=== PATIENT | male | born 1990 | race African-American/Black ===

== ENCOUNTER 2018-04-26 09:02 | Emergency (ER) | payer MEDICAID ==
[~2018-04-26] VITALS: Ht 165.1 cm; Wt 81.6 kg
[~2018-04-26 09:02] MED LIST: TENORMIN25 MG ORAL
[2018-04-26] MEDS ORDERED: ATORVASTATIN CA40 MG ORAL (09:21)
[2018-04-26] MEDS ORDERED: FAMOTIDINE20 MG ORAL (09:21)
[2018-04-26] MEDS ORDERED: ASPIR 8181 MG ORAL (09:21)
[2018-04-26 09:35] VITALS: BP 144/88
--- NOTE | 2018-04-26 09:42 | Emergency Room Report ---
History of Present Illness General Chief Complaint: Headache Source: Patient Present Illness HPI Patient presents with one week of headache. Also is complaining about chest pain. He feels chest pressure substernally. He feels heaviness in his head. It's mainly located behind his nose and eyes. He rates it as 6/10. He tried taking Tylenol and Aleve without any help. He feels slight nausea without vomiting. The pain is constant through the day, starts soon after waking. Able to sleep. No nasal congestion or sore throat. The patient was recently discharged from 3 different hospitals ultimately he was at [facility]. He had an MRI done that showed old lacunar infarct there was also present on CT scan. This was in the left caudate nucleus. They did echocardiogram that was normal but apparently there were no studies done of his carotids according to him. They didn't discharge him with any medication. In addition to that his hemoglobin A1c was 6.2 and his red cell indices showed microcytosis and low MCV. The patient denies vomiting, fever although he feels chilled on occasion. He's feeling anxious about the recent diagnoses and not having work. Patient denies smoking, alcohol. It's been 3 months since she last used marijuana. No abdominal pain, dysuria, rashes. Allergies: Coded Allergies: No Known Allergies (Unverified , 12/23/14) Patient History Past Medical History: see triage record Social History: Reports: drug use - None for 3 months; Denies: smoking, alcohol use Social History Narrative unemployed cook Reviewed Nursing Documentation: PMH: Agreed; PSxH: Agreed Nursing Documentation-PM Past Medical History: No History, Except For Hx Neurological Problems: Yes - TIA Review of Systems All Other Systems: negative except mentioned in HPI Physical Exam Vital Signs Date Time Temp Pulse Resp B/P (MAP) Pulse Ox O2 Delivery O2 Flow Rate FiO2 04/26/18 09:10 97.5 68 14 144/88 99 Room Air 97.5 Sp02 EP Interpretation: reviewed, normal General Appearance: well appearing, no apparent distress, GCS 15 Head: normocephalic Eyes: bilateral eye normal inspection ENT: moist mucus membranes, other - no sinus tenderness Neck: supple Respiratory: chest non-tender, lungs clear, normal breath sounds Cardiovascular #1: regular rate, rhythm Cardiovascular #2: 2+ radial (R) Gastrointestinal: normal inspection, normal bowel sounds, non tender, no mass, non-distended Musculoskeletal: back normal, gait/station normal, normal range of motion Neurologic: alert, oriented x3, can pusher III-XII nml as tested, motor strength/tone normal, DTRs symmetric, sensory intact, cerebellar normal, normal gait, speech normal Psychiatric: mood/affect normal - states stressed Skin: normal inspection, warm/dry Medical Decision Making Diagnostic Impression: Primary Impression: Headache Qualified Codes: R51 - Headache Additional Impressions: Chest pain Qualified Codes: R07.9 - Chest pain, unspecified s/p lacunar infacrt Anxiety ER Course Patient presents with headache and chest pain with history of old lacunar infarct. Differential includes sinusitis, tension headache, migraine, stress amongst others. Based on his neurologic exam there is no focal processes going on and CT is not indicated at this time as reviewed recent CT and MRI. However EKG chest x-ray and labs are indicated. The patient will be treated with Toradol, Reglan and Benadryl. Chest pain is atypical and he has no cardiac risk factors. EKG without injury. CXR no infiltrates. Labs with normal WBC, CMP, ESR, TSH. Improved with treatment. Discussed with PMD. Discussed treatment plan with patient . Advised patient not to take ativan at same time as tramadol. Patient stable for outpatient observation and treatment. Laboratory Tests Test 04/26/18 09:40 04/26/18 10:00 White Blood Count 5.6 K/UL (4.8-10.8) Red Blood Count 5.53 M/UL (4.70-6.10) Hemoglobin 14.4 G/DL (14.2-18.0) Hematocrit 45.6 % (42.0-52.0) Mean Corpuscular Volume 82 FL (80-99) Mean Corpuscular Hemoglobin 26.0 PG (27.0-31.0) L Mean Corpuscular Hemoglobin Concent 31.6 G/DL (32.0-36.0) L Red Cell Distribution Width 12.3 % (11.6-14.8) Platelet Count 235 K/UL (150-450) Mean Platelet Volume 8.6 FL (6.5-10.1) Neutrophils (%) (Auto) 47.6 % (45.0-75.0) Lymphocytes (%) (Auto) 40.8 % (20.0-45.0) Monocytes (%) (Auto) 7.6 % (1.0-10.0) Eosinophils (%) (Auto) 1.9 % (0.0-3.0) Basophils (%) (Auto) 2.1 % (0.0-2.0) H Erythrocyte Sedimentation Rate 4 MM/HR (0-15) Prothrombin Time 10.7 SEC (9.30-11.50) Prothrombin Time INR 1.0 (0.9-1.1) PTT 29 SEC (23-33) Sodium Level 139 MMOL/L (136-145) Potassium Level 3.6 MMOL/L (3.5-5.1) Chloride Level 105 MMOL/L (98-107) Carbon Dioxide Level 27 MMOL/L (21-32) Anion Gap 7 mmol/L (5-15) Blood Urea Nitrogen 7 mg/dL (7-18) Creatinine 1.0 MG/DL (0.55-1.30) Estimate Glomerular Filtration Rate > 60 mL/min (>60) Glucose Level 105 MG/DL (74-106) Calcium Level 9.5 MG/DL (8.5-10.1) Total Bilirubin 0.4 MG/DL (0.2-1.0) Aspartate Amino Transferase (AST) 28 U/L (15-37) Alanine Aminotransferase (ALT) 67 U/L (12-78) Alkaline Phosphatase 100 U/L (46-116) Total Creatine Kinase 95 U/L (26-308) Troponin I 0.000 ng/mL (0.000-0.056) Pro-B-Type Natriuretic Peptide 25 pg/mL (0-125) Total Protein 8.1 G/DL (6.4-8.2) Albumin 4.4 G/DL (3.4-5.0) Globulin 3.7 g/dL Albumin/Globulin Ratio 1.2 (1.0-2.7) Thyroid Stimulating Hormone (TSH) 1.974 uiU/mL (0.358-3.740) Urine Color Pale yellow Urine Appearance Clear Urine pH 7 (4.5-8.0) Urine Specific [place] 1.005 (1.005-1.035) Urine Protein Negative (NEGATIVE) Urine Glucose (UA) Negative (NEGATIVE) Urine Ketones Negative (NEGATIVE) Urine Blood Negative (NEGATIVE) Urine Nitrite Negative (NEGATIVE) Urine Bilirubin Negative (NEGATIVE) Urine Urobilinogen Normal MG/DL (0.0-1.0) Urine Leukocyte Esterase Negative (NEGATIVE) EKG Diagnostic Results Rate: normal Rhythm: NSR ST Segments: no acute changes Rhythm Strip Diag. Results EP Interpretation: yes Rhythm: NSR, no PVC's, no ectopy Chest X-Ray Diagnostic Results Chest X-Ray Diagnostic Results : Chest X-Ray Ordered: Yes # of Views/Limited/Complete: 1 View Indication: Chest Pain Interpretation: no consolidation, no effusion, no pneumothorax Impression: No acute disease Electronically Signed by: Mike Galvan MD Last Vital Signs Date Time Temp Pulse Resp B/P (MAP) Pulse Ox O2 Delivery O2 Flow Rate FiO2 04/26/18 13:55 97.5 62 21 128/79 100 Room Air 97.5 Status: improved Scripts Ibuprofen* (MOTRIN*) 600 Mg Tablet 600 MG ORAL Q6H PRN for For Pain, #20 TAB Prov: Mike Galvan M.D. 04/26/18 Lorazepam* (ATIVAN*) 0.5 Mg Tablet 0.5 MG ORAL THREE TIMES A DAY, #6 TAB Prov: Mike Galvan M.D. 04/26/18 Tramadol Hcl* (ULTRAM*) 50 Mg Tablet 50 MG ORAL Q6H PRN for For Pain, #8 TAB 0 Refills Prov: Mike Galvan M.D. 04/26/18 Ondansetron Odt* (ZOFRAN ODT*) 4 Mg Tab.rapdis 4 MG BC EVERY 8 HOURS PRN for Nausea & Vomiting, #6 TAB 1 Refill Prov: Mike Galvan M.D. 04/26/18 Referrals: Heidi Das MD (PCP) Mike Galvan M.D. Apr 26, 2018 09:42
[2018-04-26] MEDS ORDERED: Ketorolac 30mg Inj IV ONE (09:45)
[2018-04-26] MEDS ORDERED: Metoclopramide 10mg/2ml Inj IVP ONE (09:45)
[2018-04-26] MEDS ORDERED: DiphenhydrAMINE 50mg/ml Inj IVP ONE (09:45)
[2018-04-26 10:03] LABS: BASOPHILS % (AUTO) 2.1 % (0.0-2.0); EOSINOPHILS % (AUTO) 1.9 % (0.0-3.0); HEMATOCRIT 45.6 % (42.0-52.0); HEMOGLOBIN 14.4 G/DL (14.2-18.0); LYMPHOCYTES % (AUTO) 40.8 % (20.0-45.0); MEAN CORPUSCULAR VOLUME 82 FL (80-99); MONOCYTES % (AUTO) 7.6 % (1.0-10.0); NEUTROPHILS % (AUTO) 47.6 % (45.0-75.0); PLATELET COUNT 235 K/UL (150-450); RED BLOOD COUNT 5.53 M/UL (4.70-6.10); RED CELL DISTRIBUTION WIDTH 12.3 % (11.6-14.8); WHITE BLOOD COUNT 5.6 K/UL (4.8-10.8)
[2018-04-26 10:14] LABS: ANION GAP 7 mmol/L (5-15); BLOOD UREA NITROGEN 7 mg/dL (7-18); CALCIUM 9.5 MG/DL (8.5-10.1); CARBON DIOXIDE 27 MMOL/L (21-32); CHLORIDE 105 MMOL/L (98-107); POTASSIUM 3.6 MMOL/L (3.5-5.1); SODIUM 139 MMOL/L (136-145)
[2018-04-26 10:26] LABS: ALANINE AMINOTRANSFERASE 67 U/L (12-78); ALBUMIN 4.4 G/DL (3.4-5.0); ALBUMIN/GLOBULIN RATIO 1.2 (1.0-2.7); ALKALINE PHOSPHATASE 100 U/L (46-116); ASPARTATE AMINO TRANSFERASE 28 U/L (15-37); BILIRUBIN,TOTAL 0.4 MG/DL (0.2-1.0); CREATINE KINASE 95 U/L (26-308)
[2018-04-26 10:48] LABS: APPEARANCE,URINE CLEAR; BILIRUBIN, URINE NEGATIVE (NEGATIVE); COLOR,URINE PALE YELLOW; GLUCOSE, URINE (UA) NEGATIVE (NEGATIVE); KETONES,URINE NEGATIVE (NEGATIVE); LEUKOCYTE ESTERASE ,URINE NEGATIVE (NEGATIVE); NITRITE,URINE NEGATIVE (NEGATIVE); PH,URINE 7 (4.5-8.0); PROTEIN,URINE NEGATIVE (NEGATIVE); UROBILINOGEN,URINE NORMAL MG/DL (0.0-1.0)
--- NOTE | 2018-04-26 11:20 | Diagnostic Imaging Report ---
Indication: Chest pain Technique: One view of the chest Comparison: 12/24/2014 Findings: Lungs and pleural spaces are clear. Heart size is normal. No significant change Impression: No acute process
[2018-04-26 12:22] VITALS: BP 112/77
[2018-04-26] MEDS ORDERED: IBUPROFEN600 MG ORAL (13:36)
[2018-04-26] MEDS ORDERED: ATIVAN0.5 MG ORAL (13:36)
[2018-04-26] MEDS ORDERED: ONDANSETRON ODT4 MG BC (13:36)
[2018-04-26] MEDS ORDERED: TRAMADOL HCL50 MG ORAL (13:36)
[2018-04-26] MEDS ORDERED: LORazepam 0.5mg tab ORAL ONE (13:45)
[2018-04-26 13:55] VITALS: BP 128/79
--- NOTE | 2018-04-29 14:15 | Cardiology Report ---
APPROVED REPORT EKG Measurement Heart [id number] Normal sinus rhythm with sinus arrhythmia Normal ECG
== END 2018-04-26 13:57 | disposition home or self-care (01) ==
LOC: EMR 09:30
DX: R51 Headache (principal); R07.9 Chest pain, unspecified; F41.9 Anxiety disorder, unspecified
CPT/HCPCS: 36415; 71045; 80053; 81003; 82550; 83880; 84443; 84484; 85025; 85610; 85651; 85730; 93005; 96361; 96374; 96375; 99284; J1200; J1885; J2765

== ENCOUNTER → 2018-07-18 | Emergency (ER) | payer MEDICAID ==
[~2018-07-18] VITALS: Ht 165.1 cm; Wt 80.7 kg
[~2018-07-18] MED LIST changes: +ASPIR 8181 MG ORAL; +ATIVAN0.5 MG ORAL; +ATORVASTATIN CA40 MG ORAL; +FAMOTIDINE20 MG ORAL; +IBUPROFEN600 MG ORAL; +ONDANSETRON ODT4 MG BC; +TRAMADOL HCL50 MG ORAL
[2018-07-18 08:18] VITALS: BP 144/92
[2018-07-18 09:15] VITALS: BP 131/74
--- NOTE | 2018-07-18 09:20 | Emergency Room Report ---
History of Present Illness General Chief Complaint: Chest Pain Source: Patient, Medical Record Present Illness HPI Patient presents with complaints of left upper chest pain Reports that he remembers on Monday while watching a sporting event he had pain And the discomfort has persisted since that Denies any shortness of breath and eyes any vomiting Denies any radiation denies any diaphoresis Denies any focal weakness Pain was a 5 out of 10 sharp Denies any change with position or exertion Allergies: Coded Allergies: No Known Allergies (Unverified , 12/23/14) Patient History Past Medical History: see triage record Pertinent Family History: none Reviewed Nursing Documentation: PMH: Agreed; PSxH: Agreed Nursing Documentation-PMH Past Medical History: No History, Except For Hx Gastrointestinal Problems: Yes - GASTRITIS Hx Neurological Problems: Yes - TIA Review of Systems All Other Systems: negative except mentioned in HPI Physical Exam Vital Signs Date Time Temp Pulse Resp B/P (MAP) Pulse Ox O2 Delivery O2 Flow Rate FiO2 07/18/18 08:03 98.2 84 16 144/92 97 Room Air Sp02 EP Interpretation: reviewed, normal General Appearance: well appearing, no apparent distress Head: normocephalic, atraumatic Eyes: bilateral eye PERRL, bilateral eye EOMI ENT: hearing grossly normal, normal pharynx, TMs + canals normal, uvula midline Neck: full range of motion, supple, no meningismus, no bony tend Respiratory: lungs clear, normal breath sounds, no rhonchi, no respiratory distress, no retraction, no accessory muscle use Cardiovascular #1: normal peripheral pulses, regular rate, rhythm, no edema, no gallop, no JVD, no murmur Gastrointestinal: normal bowel sounds, non tender, soft, no mass, no organomegaly, non-distended, no guarding, no hernia, no pulsatile mass, no rebound Genitourinary: no CVA tenderness Musculoskeletal: normal inspection Neurologic: oriented x3, responsive, 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, motor strength/ tone normal, sensory intact Psychiatric: mood/affect normal Skin: normal color, no rash, warm/dry, palpation normal Lymphatic: normal inspection, no adenopathy Medical Decision Making Diagnostic Impression: Primary Impression: Chest pain ER Course Patient is a fairly benign medical evaluation He does have significant past medical history which includes questionable TIA/ CVAs Patient had fairly extensive workup at different hospitals recently Along with MRI and further cardiac evaluation Today's visit EKG reveals a normal sinus rhythm without any ST changes Patient remains hemodynamically stable Patient's lung sounds clear Pulse oximetry and respirations are appropriate My consideration for pneumothorax is low given the patient's lack of pleurisy or change in position And patient stable for close outpatient follow-up EKG Diagnostic Results Rate: normal Rhythm: NSR ST Segments: no acute changes Rhythm Strip Diag. Results EP Interpretation: yes Rate: 60 Rhythm: NSR, no PVC's, no ectopy Last Vital Signs Date Time Temp Pulse Resp B/P (MAP) Pulse Ox O2 Delivery O2 Flow Rate FiO2 07/18/18 09:15 98.4 65 18 131/74 100 Room Air Status: improved Disposition: HOME, SELF-CARE Condition: Stable Referrals: Heidi Das MD (PCP) Patient Instructions: Nonspecific Chest Pain Additional Instructions: Patient is provided with the discharge instructions notified to follow up with primary doctor in the next 2-3 days otherwise return to the er with any worsening symptoms. Please note that this report is being documented using [employer] technology. This can lead to erroneous entry secondary to incorrect interpretation by the dictating instrument. Heidi Ayoub DO Jul 18, 2018 09:20
== END | disposition home or self-care (01) ==
LOC: EMR 08:40
DX: R07.9 Chest pain, unspecified (principal); Z86.73 Personal history of transient ischemic attack (TIA), and cerebral infarction without residual deficits
CPT/HCPCS: 99283